=== PATIENT | female | born 1945 | race Caucasian/White ===

== ENCOUNTER → 2016-12-23 | Outpatient (CLI) | payer MEDICARE, OTHER ==
[~2016-12-23] MED LIST: ALBU4TAB PO; AMAN100T PO; AMIO200T42 PO; ARMO250T4 PO; ASPI-621 PO; BENZ100C4 PO; CALC-141 PO; CALC600T11 PO; CARV3.122 PO; CEFD300C37 PO; CHOL100015 PO; CHOL500050 PO; ENOX40SY4 SQ; FAMO20TA7 PO; FENT1PAT76 TP; FLUT1AER PO; FURO40TA6 PO; GABA300C10 PO; GUAI200T3 PO; GUAI5SYR PO; IPRA4AER PO; LEVO330T PO; LEVO750T26 PO; LEVO75TA PO; LOSA25TA2 PO; MAGN71.5 PO; METO25TA35 PO; MONT10TA9 PO; OXYC-229 PO; PANT40TA3 PO; POTA10TA PO; POTA10TA5 PO; PRAS25CA6 PO; PRAS25TA PO; PRED1TAB PO; PRED20TA PO; PRED5TAB PO; RIVA10TA PO; RIVA20TA PO; SULF1TAB24 PO; VALA1000 PO; [UNRECOGNIZED DRUG - OTHER] IV; [UNRECOGNIZED DRUG - OTHER] PO; [UNRECOGNIZED DRUG - OTHER] PO
== END | disposition home or self-care (01) ==
LOC: CFH 09:57
PROVIDERS: ATTEND Internal Medicine Cardiovascular Disease
DX: I07.1 Rheumatic tricuspid insufficiency (principal); I34.0 Nonrheumatic mitral (valve) insufficiency; I37.1 Nonrheumatic pulmonary valve insufficiency; J44.9 Chronic obstructive pulmonary disease, unspecified; I11.0 Hypertensive heart disease with heart failure; Z87.891 Personal history of nicotine dependence; Z95.0 Presence of cardiac pacemaker
CPT/HCPCS: 93306

== ENCOUNTER → 2017-03-13 | Outpatient (CLI) | payer MEDICARE, OTHER | END | disposition home or self-care (01) | LOC: CVU 07:30 | PROVIDERS: ATTEND Internal Medicine Cardiovascular Disease | DX: I74.5 Embolism and thrombosis of iliac artery (principal); I73.9 Peripheral vascular disease, unspecified; I10 Essential (primary) hypertension; I25.10 Atherosclerotic heart disease of native coronary artery without angina pectoris; E03.9 Hypothyroidism, unspecified; R53.83 Other fatigue | CPT/HCPCS: 93922; 93925; 93978 ==

== ENCOUNTER 2017-05-14 11:12 | Inpatient (IN) | payer MEDICARE, OTHER ==
[~2017-05-14] VITALS: Ht 152.4 cm; Wt 68.2 kg
[~2017-05-14 11:12] MED LIST changes: +ARMO250T2 PO; -ARMO250T4 PO; +BENZ100C17 PO; -BENZ100C4 PO; -CALC600T11 PO; +CALC600T23 PO; -OXYC-229 PO; +OXYC-307 PO
[2017-05-14] MEDS ORDERED: ONDANSETRON 2MG/ML, 2ML ONE (11:50)
[2017-05-14] MEDS ORDERED: SODIUM CHLORIDE 0.9% 1,000ML IVBOLUS ONE (13:00)
[2017-05-14] MEDS ORDERED: SODIUM CHLORIDE FLUSH 10ML SYR IVF ONE (13:00)
[2017-05-14] MEDS ORDERED: ONDANSETRON 2MG/ML, 2ML IVPush ONE (13:00)
[2017-05-14 13:09] LABS: HEMATOCRIT 43.4 % (34.6-47.8); HEMOGLOBIN 14.2 g/dL (11.7-16.4); WHITE BLOOD COUNT 8.4 x10^3/uL (3.4-10)
[2017-05-14 13:19] LABS: BLOOD UREA NITROGEN 27 mg/dL (7-18)
[2017-05-14 13:25] LABS: ASPARTATE AMINO TRANSFERASE 15 U/L (15-37); IS PT STATUS REG ER OR PRE ER? YES
[2017-05-14] MEDS: SODIUM CHLORIDE 0.9% 1,000 ML IV SCH (14:57)
[2017-05-14] MEDS ORDERED: hydrALAzine 20 MG/ML, 1ML IVPush PRN (15:00)
[2017-05-14] MEDS ORDERED: TEMPLATE NON-FORMULARY MED. (Valacyclovir Hcl** (Valacyclovir**) 1,000 MG) PO SCH (15:00)
[2017-05-14] MEDS ORDERED: BISACODYL 10 MG SUPP PR PRN (15:00)
[2017-05-14] MEDS ORDERED: ACETAMINOPHEN 325 MG TABLET PO PRN (15:00)
[2017-05-14] MEDS ORDERED: ONDANSETRON ODT 4 MG PO PRN (15:00)
[2017-05-14] MEDS: HEPARIN 5,000 UNITS/ML, 1ML SQ SCH ×2 (15:00→22:08)
[2017-05-14] MEDS ORDERED: LABETALOL 5MG/ML, 20ML IVPush PRN (15:00)
[2017-05-14] MEDS ORDERED: DOCUSATE 100 MG CAPSULE PO PRN (15:00)
[2017-05-14] MEDS ORDERED: BENZONATATE 100 MG CAPSULE PO PRN ×2 (15:00)
[2017-05-14] MEDS ORDERED: ONDANSETRON 2MG/ML, 2ML IVPush PRN (15:00)
[2017-05-14 15:01] LABS: PTH INTACT INTERPRETATION ** Comment **
[2017-05-14 15:27] LABS: PARATHYROID HORMONE INTACT 155.2 pg/mL (14-72)
[2017-05-14] MEDS ORDERED: ALBUTEROL SULFATE 2.5 MG/3 ML NPPB PRN (17:00)
[2017-05-14 18:04] VITALS: BP 105/61
[2017-05-14 19:17] VITALS: BP 120/63
[2017-05-14] MEDS: MULTIVITAMINS/MINERALS TABLET PO SCH (21:00)
[2017-05-14 21:35] VITALS: BP 131/67
[2017-05-14] MEDS: CARVEDILOL 3.125 MG TABLET PO SCH (21:39)
[2017-05-15 01:25] VITALS: BP 126/73
[2017-05-15 05:49] LABS: HEMATOCRIT 37.5 % (34.6-47.8); HEMOGLOBIN 12.2 g/dL (11.7-16.4); WHITE BLOOD COUNT 7.4 x10^3/uL (3.4-10)
[2017-05-15] MEDS: HEPARIN 5,000 UNITS/ML, 1ML SQ SCH (06:42)
[2017-05-15 06:44] LABS: BLOOD UREA NITROGEN 27 mg/dL (7-18)
[2017-05-15 07:10] VITALS: BP 123/64
[2017-05-15] MEDS: MONTELUKAST 10 MG TABLET PO SCH (09:00)
[2017-05-15] MEDS: LEVOCARNITINE 330 MG TABLET PO SCH (09:00)
[2017-05-15] MEDS ORDERED: TEMPLATE NON-FORMULARY MED. (Prasterone (Dhea) (Dhea 25) 25 MG) HOMEMEDPO SCH (09:00)
[2017-05-15] MEDS: LEVOTHYROXINE 75 MCG TABLET PO SCH (10:02)
[2017-05-15] MEDS: CARVEDILOL 3.125 MG TABLET PO SCH ×2 (10:02→20:43)
[2017-05-15] MEDS: PANTOPROZOLE 40MG TABLET PO SCH (10:02)
[2017-05-15] MEDS: CHOLECALCIFEROL 1,000 UNIT TABLET PO SCH (10:02)
[2017-05-15] MEDS: TEMPLATE NON-FORMULARY MED. (Valacyclovir Hcl** (Valacyclovir**) 1,000 MG) PO SCH (10:35)
[2017-05-15] MEDS: APIXABAN 2.5 MG TABLET PO SCH ×2 (10:52→20:43)
[2017-05-15] MEDS: FLUTICASONE/VILANTEROL 200-25MCG/INH INH SCH (10:52)
[2017-05-15] MEDS: AMANTADINE 100 MG CAPSULE PO SCH ×2 (10:52→20:43)
[2017-05-15] MEDS: SODIUM CHLORIDE 0.9% 1,000 ML IV SCH (14:57)
[2017-05-15 14:58] VITALS: BP 134/68
[2017-05-15] MEDS: FENTANYL REMOVE PATCH NOTE XX SCH (17:00)
[2017-05-15] MEDS: FENTANYL 25 MCG PATCH TD SCH (17:17)
[2017-05-15 20:00] VITALS: BP 138/78
[2017-05-15 20:40] VITALS: BP 138/69
[2017-05-15] MEDS: MULTIVITAMINS/MINERALS TABLET PO SCH (21:00)
[2017-05-16 02:04] VITALS: BP 137/75
[2017-05-16 05:30] LABS: HEMATOCRIT 35.2 % (34.6-47.8); HEMOGLOBIN 11.4 g/dL (11.7-16.4); WHITE BLOOD COUNT 7.9 x10^3/uL (3.4-10)
[2017-05-16 05:55] LABS: BLOOD UREA NITROGEN 25 mg/dL (7-18)
[2017-05-16 06:02] LABS: TOTAL IRON BINDING CAPACITY 261 mcg/dL (250-450)
[2017-05-16 06:03] LABS: ASPARTATE AMINO TRANSFERASE 11 U/L (15-37); FERRITIN 107.6 ng/mL (8-252)
[2017-05-16 07:20] VITALS: BP 146/79
[2017-05-16] MEDS: FLUTICASONE/VILANTEROL 200-25MCG/INH INH SCH (08:43)
[2017-05-16] MEDS: TEMPLATE NON-FORMULARY MED. (Valacyclovir Hcl** (Valacyclovir**) 1,000 MG) PO SCH (08:43)
[2017-05-16] MEDS: LEVOCARNITINE 330 MG TABLET PO SCH (08:45)
[2017-05-16] MEDS: MONTELUKAST 10 MG TABLET PO SCH (08:46)
[2017-05-16] MEDS: PANTOPROZOLE 40MG TABLET PO SCH (08:46)
[2017-05-16] MEDS: AMANTADINE 100 MG CAPSULE PO SCH ×2 (08:46→21:41)
[2017-05-16] MEDS: APIXABAN 2.5 MG TABLET PO SCH ×2 (08:46→21:42)
[2017-05-16] MEDS: CARVEDILOL 3.125 MG TABLET PO SCH ×2 (08:46→22:30)
[2017-05-16] MEDS: CHOLECALCIFEROL 1,000 UNIT TABLET PO SCH (08:47)
[2017-05-16] MEDS: LEVOTHYROXINE 75 MCG TABLET PO SCH (08:47)
[2017-05-16] MEDS: IRON SUCROSE COMPLEX 100MG/5ML IV SCH (10:47)
[2017-05-16] MEDS: CALCIUM CARBONATE 500 MG TABLET PO SCH ×2 (12:43→21:41)
[2017-05-16 13:50] VITALS: BP 121/65
[2017-05-16] MEDS: SODIUM CHLORIDE 0.9% 1,000 ML IV SCH (14:33)
[2017-05-16 20:00] VITALS: BP 135/79
[2017-05-16] MEDS: MULTIVITAMINS/MINERALS TABLET PO SCH (21:00)
[2017-05-16 22:32] VITALS: BP 157/50
[2017-05-17 02:00] VITALS: BP 151/75
[2017-05-17 05:12] LABS: HEMATOCRIT 36.7 % (34.6-47.8); WHITE BLOOD COUNT 8.3 x10^3/uL (3.4-10)
[2017-05-17 05:24] LABS: BLOOD UREA NITROGEN 26 mg/dL (7-18)
[2017-05-17 05:30] LABS: ASPARTATE AMINO TRANSFERASE 13 U/L (15-37)
[2017-05-17 07:55] VITALS: BP 136/68
[2017-05-17] MEDS: TEMPLATE NON-FORMULARY MED. (Valacyclovir Hcl** (Valacyclovir**) 1,000 MG) PO SCH (09:00)
[2017-05-17] MEDS: LEVOCARNITINE 330 MG TABLET PO SCH ×2 (09:00→09:01)
[2017-05-17] MEDS: MONTELUKAST 10 MG TABLET PO SCH ×2 (09:00→09:01)
[2017-05-17] MEDS: APIXABAN 2.5 MG TABLET PO SCH (09:01)
[2017-05-17] MEDS: AMANTADINE 100 MG CAPSULE PO SCH ×2 (09:01→21:07)
[2017-05-17] MEDS: PANTOPROZOLE 40MG TABLET PO SCH (09:01)
[2017-05-17] MEDS: LEVOTHYROXINE 75 MCG TABLET PO SCH (09:02)
[2017-05-17] MEDS: CALCIUM CARBONATE 500 MG TABLET PO SCH ×2 (09:02→21:06)
[2017-05-17] MEDS: CARVEDILOL 3.125 MG TABLET PO SCH ×2 (09:02→21:07)
[2017-05-17] MEDS: FLUTICASONE/VILANTEROL 200-25MCG/INH INH SCH (09:02)
[2017-05-17] MEDS: IRON SUCROSE COMPLEX 100MG/5ML IV SCH (09:03)
[2017-05-17] MEDS: SODIUM CHLORIDE 0.9% 1,000 ML IV SCH ×2 (12:11→17:04)
[2017-05-17 14:12] VITALS: BP 123/73
[2017-05-17 20:00] VITALS: BP 130/68
[2017-05-17] MEDS: APIXABAN 5 MG TABLET PO SCH (21:06)
[2017-05-17] MEDS: MULTIVITAMINS/MINERALS TABLET PO SCH (21:07)
[2017-05-18 02:00] VITALS: BP 149/70
[2017-05-18] MEDS: SODIUM CHLORIDE 0.9% 1,000 ML IV SCH ×2 (05:05→20:41)
[2017-05-18 05:38] LABS: HEMATOCRIT 37.4 % (34.6-47.8); HEMOGLOBIN 12.3 g/dL (11.7-16.4); WHITE BLOOD COUNT 9.1 x10^3/uL (3.4-10)
[2017-05-18 05:59] LABS: ASPARTATE AMINO TRANSFERASE 10 U/L (15-37); BLOOD UREA NITROGEN 28 mg/dL (7-18)
[2017-05-18 07:59] VITALS: BP 151/80
[2017-05-18] MEDS: LEVOCARNITINE 330 MG TABLET PO SCH (08:00)
[2017-05-18] MEDS: MONTELUKAST 10 MG TABLET PO SCH (08:01)
[2017-05-18] MEDS: IRON SUCROSE COMPLEX 100MG/5ML IV SCH (08:08)
[2017-05-18] MEDS: FLUTICASONE/VILANTEROL 200-25MCG/INH INH SCH (08:08)
[2017-05-18] MEDS: TEMPLATE NON-FORMULARY MED. (Valacyclovir Hcl** (Valacyclovir**) 1,000 MG) PO SCH (08:08)
[2017-05-18] MEDS: PANTOPROZOLE 40MG TABLET PO SCH (08:09)
[2017-05-18] MEDS: CARVEDILOL 3.125 MG TABLET PO SCH ×2 (08:09→20:41)
[2017-05-18] MEDS: CALCIUM CARBONATE 500 MG TABLET PO SCH ×2 (08:09→20:38)
[2017-05-18] MEDS: APIXABAN 5 MG TABLET PO SCH ×2 (08:09→20:40)
[2017-05-18] MEDS: AMANTADINE 100 MG CAPSULE PO SCH ×2 (08:10→20:39)
[2017-05-18] MEDS: LEVOTHYROXINE 75 MCG TABLET PO SCH (08:10)
[2017-05-18 12:12] LABS: PATH.CAST-FLAG NOT PRESENT; SPERM-FLAG NOT PRESENT; SRC-FLAG NOT PRESENT; XTAL-FLAG NOT PRESENT; YLC-FLAG NOT PRESENT
[2017-05-18 12:14] LABS: POTASSIUM,URINE RANDOM 11 mmol/L
[2017-05-18 12:18] VITALS: BP 134/77
[2017-05-18] MEDS: FENTANYL REMOVE PATCH NOTE XX SCH (17:00)
[2017-05-18] MEDS: FENTANYL 25 MCG PATCH TD SCH (18:14)
[2017-05-18 20:09] VITALS: BP 159/83
[2017-05-18] MEDS: MULTIVITAMINS/MINERALS TABLET PO SCH (20:41)
[2017-05-19 01:00] VITALS: BP 174/74
[2017-05-19 02:32] VITALS: BP 165/89
[2017-05-19 05:28] LABS: HEMATOCRIT 38.6 % (34.6-47.8); HEMOGLOBIN 12.6 g/dL (11.7-16.4); WHITE BLOOD COUNT 9.6 x10^3/uL (3.4-10)
[2017-05-19 05:34] LABS: ASPARTATE AMINO TRANSFERASE 10 U/L (15-37); BLOOD UREA NITROGEN 27 mg/dL (7-18)
[2017-05-19 07:07] VITALS: BP 163/77
[2017-05-19] MEDS: SODIUM CHLORIDE 0.9% 1,000 ML IV SCH (08:40)
[2017-05-19] MEDS: TEMPLATE NON-FORMULARY MED. (Valacyclovir Hcl** (Valacyclovir**) 1,000 MG) PO SCH (08:57)
[2017-05-19] MEDS: FLUTICASONE/VILANTEROL 200-25MCG/INH INH SCH (08:58)
[2017-05-19] MEDS: AMANTADINE 100 MG CAPSULE PO SCH (08:59)
[2017-05-19] MEDS: MONTELUKAST 10 MG TABLET PO SCH (09:00)
[2017-05-19] MEDS: CALCIUM CARBONATE 500 MG TABLET PO SCH (09:00)
[2017-05-19] MEDS: APIXABAN 5 MG TABLET PO SCH (09:00)
[2017-05-19] MEDS: PANTOPROZOLE 40MG TABLET PO SCH (09:01)
[2017-05-19] MEDS: LEVOTHYROXINE 75 MCG TABLET PO SCH (09:01)
[2017-05-19] MEDS: CARVEDILOL 3.125 MG TABLET PO SCH (09:01)
[2017-05-19] MEDS ORDERED: APIX5TAB PO (10:51)
[2017-05-24 08:07] LABS: CARNITINE FREE 27 umol/L (20-55); CARNITINE TOTAL 31 umol/L (27-73); ESTERIFIED/FREE CARNIT RATIO 0.1 Ratio (0.0-0.9)
== END 2017-05-19 13:14 | disposition home or self-care (01) | DRG 682 ==
LOC: ED 12:30 → EDIP 14:01 → 4EST 17:18
PROVIDERS: ADMIT Internal Medicine; ATTEND Internal Medicine
DX: N17.9 Acute kidney failure, unspecified (principal); E43 Unspecified severe protein-calorie malnutrition; I48.91 Unspecified atrial fibrillation; Z99.81 Dependence on supplemental oxygen; I50.9 Heart failure, unspecified; D63.1 Anemia in chronic kidney disease; E83.51 Hypocalcemia; D50.9 Iron deficiency anemia, unspecified; J44.9 Chronic obstructive pulmonary disease, unspecified; R55 Syncope and collapse; E03.9 Hypothyroidism, unspecified; E86.0 Dehydration; M60.9 Myositis, unspecified; R29.6 Repeated falls; N18.6 End stage renal disease; Z66 Do not resuscitate; Z86.711 Personal history of pulmonary embolism; Z86.718 Personal history of other venous thrombosis and embolism; Z87.440 Personal history of urinary (tract) infections; Z87.891 Personal history of nicotine dependence; Z95.0 Presence of cardiac pacemaker; Z68.29 Body mass index [BMI] 29.0-29.9, adult; Z88.1 Allergy status to other antibiotic agents; Z88.5 Allergy status to narcotic agent; Z88.0 Allergy status to penicillin; Z88.8 Allergy status to other drugs, medicaments and biological substances
CPT/HCPCS: 36415; 71010; 76770; 80048; 80053; 81001; 82306; 82310; 82330; 82379; 82436; 82550; 82570; 82652; 82728; 83540; 83550; 83605; 83735; 83970; 84100; 84133; 84156; 84300; 84439; 84443; 84484; 84550; 85025; 87040; 87086; 93005; 93306; 96361; 96374; J1756; J2405; J7512; J7030

== ENCOUNTER 2017-05-22 02:03 | Emergency (ER) | payer MEDICARE, OTHER ==
[~2017-05-22] VITALS: Ht 160 cm; Wt 65.0 kg
[~2017-05-22 02:03] MED LIST changes: +APIX5TAB PO; +BENZ-17 PO; -BENZ100C17 PO
[2017-05-22 02:05] VITALS: BP 168/92
[2017-05-22] MEDS ORDERED: LIDOCAINE 1%, 20ML ONE (03:13)
== END 2017-05-22 04:24 | disposition home or self-care (01) ==
LOC: ED 02:39
DX: S09.90XA Unspecified injury of head, initial encounter (principal); S61.511A Laceration without foreign body of right wrist, initial encounter; G89.11 Acute pain due to trauma; R51 Headache; S52.611A Displaced fracture of right ulna styloid process, initial encounter for closed fracture; J44.9 Chronic obstructive pulmonary disease, unspecified; E03.9 Hypothyroidism, unspecified; Z86.718 Personal history of other venous thrombosis and embolism; W19.XXXA Unspecified fall, initial encounter; Y93.89 Activity, other specified; Y93.01 Activity, walking, marching and hiking; Y92.091 Bathroom in other non-institutional residence as the place of occurrence of the external cause
CPT/HCPCS: 12004; 70450; 99284

== ENCOUNTER → 2017-05-25 | Outpatient (CLI) | payer MEDICARE, OTHER ==
[~2017-05-25] MED LIST changes: -BENZ-17 PO; +BENZ100C17 PO
[2017-05-25 12:46] LABS: HEMATOCRIT 38.6 % (34.6-47.8); HEMOGLOBIN 12.8 g/dL (11.7-16.4); WHITE BLOOD COUNT 12.5 x10^3/uL (3.4-10)
[2017-05-25 12:54] LABS: BLOOD UREA NITROGEN 16 mg/dL (7-18)
[2017-05-25 12:59] LABS: ASPARTATE AMINO TRANSFERASE 14 U/L (15-37)
== END | disposition home or self-care (01) ==
LOC: CFH 11:43
PROVIDERS: ATTEND Internal Medicine Nephrology
DX: N18.9 Chronic kidney disease, unspecified (principal)
CPT/HCPCS: 36415; 80053; 81001; 82570; 83735; 84100; 84156; 85025

== ENCOUNTER 2017-09-01 16:50 | Inpatient (IN) | payer MEDICARE, OTHER ==
[~2017-09-01] VITALS: Ht 154.9 cm; Wt 63.9 kg
[~2017-09-01 16:50] MED LIST changes: +BENZ-17 PO; -BENZ100C17 PO
[2017-09-01] MEDS ORDERED: SODIUM CHLORIDE FLUSH 10ML SYR IVF ONE (17:00)
[2017-09-01 17:23] LABS: BASOPHILS # (AUTO) 0.02 x10^3/uL (0-0.1); BASOPHILS % (AUTO) 0 % (0-1); EOSINOPHILS # (AUTO) 0.01 x10^3/uL (0-0.4); EOSINOPHILS % (AUTO) 0 % (1-7); LYMPHOCYTES # (AUTO) 0.63 x10^3/uL (1-3.4); LYMPHOCYTES % (AUTO) 4 % (22-44); MD NO; MEAN CORPUSCULAR HEMOGLOBIN 33.3 pg (27.0-34.8); MEAN CORPUSCULAR HGB CONC 32.5 g/dL (32.4-35.8); MEAN CORPUSCULAR VOLUME 102.4 fL (80-100); MEAN PLATELET VOLUME 7.9 fL (7.4-10.4); MONOCYTES # (AUTO) 1.15 x10^3/uL (0.2-0.8); MONOCYTES % (AUTO) 7 % (2-9); NEUTROPHILS # (AUTO) 14.05 x10^3/uL (1.8-6.8); NEUTROPHILS % (AUTO) 89 % (42-75); PLATELET COUNT 252 x10^3/uL (130-400); RED BLOOD COUNT 3.64 x10^6/uL (3.82-5.3); RED CELL DISTRIBUTION WIDTH 13.8 % (9.6-15.2)
[2017-09-01 17:36] LABS: ALANINE AMINOTRANSFERASE 33 U/L (12-78); ALBUMIN 3.5 g/dL (3.4-5.0); ANION GAP 6 mmol/L (5-15); CALCIUM 7.9 mg/dL (8.5-10.1); CHLORIDE 108 mmol/L (98-107); CREATININE 0.96 mg/dL (0.55-1.02)
[2017-09-01 17:37] LABS: INTERNATIONAL NORMALIZED RATIO 1.23 (0.93-1.1); PROTHROMBIN TIME 12.7 Seconds (9.6-11.5)
[2017-09-01 17:40] LABS: ALKALINE PHOSPHATASE 92 U/L (45-117); BILIRUBIN,TOTAL 0.3 mg/dL (0.2-1.0); TOTAL PROTEIN 6.7 g/dL (6.4-8.2); TROPONIN I 0.068 ng/mL (0.000-0.045)
[2017-09-01] MEDS ORDERED: LOSA100T6 PO (17:40)
[2017-09-01] MEDS ORDERED: PRED1TAB PO (17:40)
[2017-09-01] MEDS ORDERED: FUROSEMIDE 40 MG/4 ML IV ONE (18:30)
[2017-09-01] MEDS ORDERED: DILTIAZEM 5 MG/ML, 5ML IVPush ONE (18:30)
[2017-09-01] MEDS ORDERED: ONDANSETRON ODT 4 MG PO PRN (19:00)
[2017-09-01] MEDS ORDERED: TEMPLATE NON-FORMULARY MED. (Valacyclovir Hcl** (Valacyclovir**) 1,000 MG) PO SCH (19:00)
[2017-09-01] MEDS ORDERED: OXYcodone/APAP 10/325MG TABLET PO PRN (19:00)
[2017-09-01] MEDS ORDERED: LABETALOL 5MG/ML, 20ML IVPush PRN (19:00)
[2017-09-01] MEDS ORDERED: DOCUSATE 100 MG CAPSULE PO PRN (19:00)
[2017-09-01] MEDS ORDERED: TEMAZEPAM 15 MG CAPSULE PO PRN (19:00)
[2017-09-01 19:39] LABS: FREE T4 (FREE THYROXINE) 1.46 ng/dL (0.76-1.46); THYROID STIMULATING HORMONE 0.502 mIU/L (0.358-3.740)
[2017-09-01 20:33] VITALS: BP 141/82
[2017-09-01] MEDS ORDERED: RIVAROXABAN 15 MG TABLET PO SCH (21:30)
[2017-09-01 22:22] VITALS: BP 141/82
[2017-09-01] MEDS: CARVEDILOL 3.125 MG TABLET PO SCH (23:12)
[2017-09-01] MEDS: AMANTADINE 100 MG CAPSULE PO SCH (23:13)
[2017-09-01 23:19] LABS: TROPONIN I 0.071 ng/mL (0.000-0.045)
[2017-09-02] MEDS ORDERED: RIVAROXABAN 10 MG TABLET PO ONE (00:30)
[2017-09-02 02:05] VITALS: BP 133/77
[2017-09-02 05:32] LABS: BASOPHILS # (AUTO) 0.03 x10^3/uL (0-0.1); BASOPHILS % (AUTO) 0 % (0-1); EOSINOPHILS # (AUTO) 0.02 x10^3/uL (0-0.4); EOSINOPHILS % (AUTO) 0 % (1-7); LYMPHOCYTES # (AUTO) 1.24 x10^3/uL (1-3.4); LYMPHOCYTES % (AUTO) 9 % (22-44); MD NO; MEAN CORPUSCULAR HEMOGLOBIN 33.1 pg (27.0-34.8); MEAN CORPUSCULAR HGB CONC 32.8 g/dL (32.4-35.8); MEAN PLATELET VOLUME 8.3 fL (7.4-10.4); MONOCYTES # (AUTO) 1.36 x10^3/uL (0.2-0.8); MONOCYTES % (AUTO) 10 % (2-9); NEUTROPHILS # (AUTO) 11.28 x10^3/uL (1.8-6.8); NEUTROPHILS % (AUTO) 81 % (42-75); PLATELET COUNT 219 x10^3/uL (130-400); RED BLOOD COUNT 3.73 x10^6/uL (3.82-5.3); RED CELL DISTRIBUTION WIDTH 13.7 % (9.6-15.2)
[2017-09-02 05:47] LABS: ANION GAP 6 mmol/L (5-15); CHLORIDE 102 mmol/L (98-107)
[2017-09-02 05:52] LABS: CALCIUM 8.3 mg/dL (8.5-10.1); CREATININE 1.02 mg/dL (0.55-1.02)
[2017-09-02 07:25] VITALS: BP 143/83
[2017-09-02] MEDS ORDERED: PANTOPROZOLE 40MG TABLET ONE (07:54)
[2017-09-02] MEDS ORDERED: VALACYCLOVIR 500MG TABLET ONE (07:55)
[2017-09-02] MEDS ORDERED: LOSARTAN 50MG TABLET ONE (07:55)
[2017-09-02] MEDS ORDERED: LEVOTHYROXINE 75 MCG TABLET ONE (07:56)
[2017-09-02] MEDS: LOSARTAN 50MG TABLET PO SCH (08:00)
[2017-09-02] MEDS: CARVEDILOL 3.125 MG TABLET PO SCH ×2 (08:01→20:59)
[2017-09-02] MEDS: PANTOPROZOLE 40MG TABLET PO SCH (08:01)
[2017-09-02] MEDS: AMANTADINE 100 MG CAPSULE PO SCH ×2 (08:02→20:59)
[2017-09-02] MEDS: LEVOTHYROXINE 75 MCG TABLET PO SCH (08:04)
[2017-09-02] MEDS: VALACYCLOVIR 500MG TABLET PO SCH (08:05)
[2017-09-02 08:20] LABS: TROPONIN I 0.092 ng/mL (0.000-0.045)
[2017-09-02] MEDS ORDERED: LEVOTHYROXINE 75 MCG TABLET PO SCH (09:00)
[2017-09-02] MEDS ORDERED: TEMPLATE NON-FORMULARY MED. (Valacyclovir Hcl** (Valacyclovir**) 1,000 MG) PO SCH (09:00)
[2017-09-02] MEDS ORDERED: MAGNESIUM SULFATE PMX 2GM/50ML 50 ML IV ONE (11:00)
[2017-09-02] MEDS ORDERED: POTASSIUM CHLORIDE 20 MEQ TAB.ER.PRT PO ONE (11:00)
[2017-09-02] MEDS: FUROSEMIDE 40 MG/4 ML IV SCH ×2 (12:03→18:11)
[2017-09-02 12:15] VITALS: BP 135/75
[2017-09-02] MEDS: RIVAROXABAN 20 MG TABLET PO SCH (18:11)
[2017-09-02 19:16] VITALS: BP 121/78
[2017-09-03 01:00] VITALS: BP 122/81
[2017-09-03] MEDS: LEVOTHYROXINE 75 MCG TABLET PO SCH (06:11)
[2017-09-03 07:04] VITALS: BP 117/84
[2017-09-03] MEDS: FUROSEMIDE 40 MG/4 ML IV SCH ×2 (08:00→17:33)
[2017-09-03] MEDS ORDERED: DIGOXIN 0.25 MG/ML, 2ML IVPush ONE ×4 (08:30→20:30)
[2017-09-03] MEDS: AMANTADINE 100 MG CAPSULE PO SCH ×2 (09:00→21:00)
[2017-09-03] MEDS ORDERED: CARVEDILOL 3.125 MG TABLET ONE (09:51)
[2017-09-03] MEDS: VALACYCLOVIR 500MG TABLET PO SCH (09:55)
[2017-09-03] MEDS: PANTOPROZOLE 40MG TABLET PO SCH (09:56)
[2017-09-03] MEDS: LOSARTAN 50MG TABLET PO SCH (09:56)
[2017-09-03] MEDS: DIGOXIN 0.25 MG TABLET PO SCH (09:56)
[2017-09-03] MEDS: METOPROLOL TARTRATE 25 MG TABLET PO SCH ×2 (10:09→18:25)
[2017-09-03 12:41] VITALS: BP 110/69
[2017-09-03] MEDS: RIVAROXABAN 20 MG TABLET PO SCH (18:25)
[2017-09-03 18:49] VITALS: BP 93/52
[2017-09-03] MEDS ORDERED: DIGOXIN 0.25 MG/ML, 2ML IVPush PRN (19:30)
[2017-09-04 01:35] VITALS: BP 116/69
[2017-09-04] MEDS: METOPROLOL TARTRATE 25 MG TABLET PO SCH (05:43)
[2017-09-04] MEDS: LEVOTHYROXINE 75 MCG TABLET PO SCH (05:44)
[2017-09-04 07:53] VITALS: BP 114/68
[2017-09-04] MEDS: FUROSEMIDE 40 MG/4 ML IV SCH ×3 (08:12→17:00)
[2017-09-04] MEDS: VALACYCLOVIR 500MG TABLET PO SCH (08:13)
[2017-09-04] MEDS: PANTOPROZOLE 40MG TABLET PO SCH (08:13)
[2017-09-04] MEDS: DIGOXIN 0.25 MG TABLET PO SCH (08:13)
[2017-09-04] MEDS: AMANTADINE 100 MG CAPSULE PO SCH (08:13)
[2017-09-04] MEDS: LOSARTAN 50MG TABLET PO SCH (08:14)
[2017-09-04] MEDS ORDERED: REGADENOSON 0.4 MG/5 ML SYRINGE ONE (08:30)
[2017-09-04] MEDS ORDERED: CALCIUM/VITAMIN D3 250-125 TABLET ONE (11:20)
[2017-09-04 14:11] VITALS: BP 122/75
[2017-09-04] MEDS ORDERED: DIGO250T PO (15:43)
[2017-09-04] MEDS ORDERED: POTA20TA14 PO (15:43)
[2017-09-04] MEDS ORDERED: FURO40TA6 PO (15:43)
[2017-09-04] MEDS ORDERED: METO25TA35 PO (16:41)
[2017-09-04] MEDS ORDERED: RIVA20TA PO (16:41)
== END 2017-09-04 17:34 | disposition home health service (06) | DRG 291 ==
LOC: ED 18:24 → EDIP 18:25 → ED 18:43 → 5SO 20:19
PROVIDERS: ADMIT Internal Medicine; ATTEND Hospitalist
DX: I11.0 Hypertensive heart disease with heart failure (principal); J96.21 Acute and chronic respiratory failure with hypoxia; I82.411 Acute embolism and thrombosis of right femoral vein; D68.69 Other thrombophilia; I50.43 Acute on chronic combined systolic (congestive) and diastolic (congestive) heart failure; I42.9 Cardiomyopathy, unspecified; Z99.81 Dependence on supplemental oxygen; G89.4 Chronic pain syndrome; I16.0 Hypertensive urgency; E03.9 Hypothyroidism, unspecified; I48.0 Paroxysmal atrial fibrillation; I77.1 Stricture of artery; J44.9 Chronic obstructive pulmonary disease, unspecified; M60.9 Myositis, unspecified; Z79.01 Long term (current) use of anticoagulants; Z86.711 Personal history of pulmonary embolism; Z86.718 Personal history of other venous thrombosis and embolism; Z87.891 Personal history of nicotine dependence; Z95.0 Presence of cardiac pacemaker; Z98.1 Arthrodesis status
CPT/HCPCS: 36415; 71045; 78452; 80048; 80053; 83880; 84439; 84443; 84484; 85025; 85379; 85610; 85730; 93005; 93017; 93306; 93970; J1940; J2785; J7512; A9502; C9898; J1160; J3475

== ENCOUNTER 2017-11-08 18:38 | Emergency (ER) | payer MEDICARE, OTHER ==
[~2017-11-08] VITALS: Ht 154.9 cm; Wt 70.0 kg
[~2017-11-08 18:38] MED LIST changes: +DIGO250T PO; +LOSA100T6 PO; +POTA20TA14 PO
[2017-11-08 20:10] VITALS: BP 141/63
== END 2017-11-08 20:15 | disposition home or self-care (01) ==
LOC: ED 19:23
DX: J01.00 Acute maxillary sinusitis, unspecified (principal); J01.10 Acute frontal sinusitis, unspecified; E03.9 Hypothyroidism, unspecified; I48.91 Unspecified atrial fibrillation; I50.9 Heart failure, unspecified; J44.9 Chronic obstructive pulmonary disease, unspecified; Z86.711 Personal history of pulmonary embolism; Z86.718 Personal history of other venous thrombosis and embolism; Z95.0 Presence of cardiac pacemaker
CPT/HCPCS: 71046; 99284

== ENCOUNTER → 2018-01-04 | Outpatient (CLI) | payer MEDICARE, OTHER | END | disposition home or self-care (01) | LOC: CFH 13:51 | PROVIDERS: ATTEND Nurse Practitioner | DX: M85.88 Other specified disorders of bone density and structure, other site (principal); M81.0 Age-related osteoporosis without current pathological fracture; E83.51 Hypocalcemia | CPT/HCPCS: 77080 ==

== ENCOUNTER → 2018-02-27 | Outpatient (CLI) | payer MEDICARE, OTHER | END | disposition home or self-care (01) | LOC: WOUND 09:05 | PROVIDERS: ATTEND Nurse Practitioner Family | DX: L03.115 Cellulitis of right lower limb (principal); L03.116 Cellulitis of left lower limb; I11.0 Hypertensive heart disease with heart failure; I50.32 Chronic diastolic (congestive) heart failure; J44.9 Chronic obstructive pulmonary disease, unspecified; I48.2 Chronic atrial fibrillation; K21.9 Gastro-esophageal reflux disease without esophagitis; E03.9 Hypothyroidism, unspecified; Z87.891 Personal history of nicotine dependence; Z86.718 Personal history of other venous thrombosis and embolism; Z86.711 Personal history of pulmonary embolism | CPT/HCPCS: G0463; WOU0463 ==

== ENCOUNTER → 2018-03-06 | Outpatient (CLI) | payer MEDICARE, OTHER | END | disposition home or self-care (01) | LOC: WOUND 09:20 | PROVIDERS: ATTEND Nurse Practitioner Family | DX: L03.115 Cellulitis of right lower limb (principal); L03.116 Cellulitis of left lower limb; I11.0 Hypertensive heart disease with heart failure; I50.32 Chronic diastolic (congestive) heart failure; J44.9 Chronic obstructive pulmonary disease, unspecified; I48.2 Chronic atrial fibrillation; K21.9 Gastro-esophageal reflux disease without esophagitis; E03.9 Hypothyroidism, unspecified; Z87.891 Personal history of nicotine dependence; Z86.718 Personal history of other venous thrombosis and embolism; Z86.711 Personal history of pulmonary embolism | CPT/HCPCS: G0463; WOU0463 ==

== ENCOUNTER 2018-05-16 16:31 | Inpatient (IN) | payer MEDICARE, OTHER ==
[~2018-05-16] VITALS: Ht 154.9 cm; Wt 62.5 kg
[~2018-05-16 16:31] MED LIST changes: -LOSA100T6 PO; +LOSA100T7 PO
[2018-05-16 17:30] LABS: BASOPHILS # (AUTO) 0.03 x10^3/uL (0-0.1); BASOPHILS % (AUTO) 0 % (0-1); EOSINOPHILS # (AUTO) 0.03 x10^3/uL (0-0.4); EOSINOPHILS % (AUTO) 0 % (1-7); LYMPHOCYTES # (AUTO) 1.29 x10^3/uL (1-3.4); LYMPHOCYTES % (AUTO) 9 % (22-44); MD NO; MEAN CORPUSCULAR HEMOGLOBIN 34.3 pg (27.0-34.8); MEAN CORPUSCULAR HGB CONC 33.5 g/dL (32.4-35.8); MEAN CORPUSCULAR VOLUME 102.6 fL (80-100); MEAN PLATELET VOLUME 7.9 fL (7.4-10.4); MONOCYTES # (AUTO) 0.73 x10^3/uL (0.2-0.8); MONOCYTES % (AUTO) 5 % (2-9); NEUTROPHILS # (AUTO) 11.93 x10^3/uL (1.8-6.8); NEUTROPHILS % (AUTO) 85 % (42-75); PLATELET COUNT 310 x10^3/uL (130-400); RED CELL DISTRIBUTION WIDTH 13.5 % (9.6-15.2)
[2018-05-16] MEDS ORDERED: NITROGLYCERIN SINGLE TAB 0.4 MG SL ONE (17:36)
[2018-05-16] MEDS ORDERED: ASPIRIN 81 MG TABLET EC ONE (17:36)
[2018-05-16 17:41] LABS: ALBUMIN 4.1 g/dL (3.4-5.0); ANION GAP 8 mmol/L (5-15); CALCIUM 9.1 mg/dL (8.5-10.1); CHLORIDE 109 mmol/L (98-107); CREATININE 1.42 mg/dL (0.55-1.02)
[2018-05-16 17:45] LABS: TROPONIN I 0.022 ng/mL (0.000-0.045)
[2018-05-16 17:55] LABS: INTERNATIONAL NORMALIZED RATIO 1.13 (0.93-1.1); PROTHROMBIN TIME 11.6 Seconds (9.6-11.5)
[2018-05-16] MEDS ORDERED: ASPIRIN 81 MG TABLET CHEW PO ONE (18:00)
[2018-05-16] MEDS ORDERED: NITROGLYCERIN SINGLE TAB 0.4 MG SL PRN (18:00)
[2018-05-16] MEDS ORDERED: OXYcodone/APAP 5/325MG TABLET PO ONE (18:30)
[2018-05-16] MEDS ORDERED: NITROGLYCERIN 0.4 MG BOTTLE (25 TABS) SL PRN (19:30)
[2018-05-16] MEDS ORDERED: DOCUSATE 100 MG CAPSULE PO PRN (19:30)
[2018-05-16] MEDS ORDERED: ONDANSETRON ODT 4 MG PO PRN (19:30)
[2018-05-16] MEDS ORDERED: hydrALAzine 20 MG/ML, 1ML IVPush PRN (19:30)
[2018-05-16] MEDS: METOPROLOL TARTRATE 25 MG TABLET PO SCH (21:27)
[2018-05-16] MEDS: OXYcodone/APAP 10/325MG TABLET PO PRN (21:27)
[2018-05-16] MEDS: AMANTADINE 100 MG CAPSULE PO SCH (21:27)
[2018-05-16] MEDS: RIVAROXABAN 20 MG TABLET PO SCH (21:27)
[2018-05-16 21:30] VITALS: BP 150/70
[2018-05-16 21:38] LABS: TROPONIN I 0.024 ng/mL (0.000-0.045)
[2018-05-17 00:01] VITALS: BP 135/67
[2018-05-17 03:14] LABS: TROPONIN I 0.026 ng/mL (0.000-0.045)
[2018-05-17 05:32] VITALS: BP 129/72
[2018-05-17] MEDS: METOPROLOL TARTRATE 25 MG TABLET PO SCH ×2 (05:33→17:48)
[2018-05-17 07:20] VITALS: BP 131/72
[2018-05-17] MEDS: PANTOPROZOLE 40MG TABLET PO SCH (08:05)
[2018-05-17] MEDS: LOSARTAN 50MG TABLET PO SCH (08:05)
[2018-05-17] MEDS: LEVOTHYROXINE 75 MCG TABLET PO SCH (08:05)
[2018-05-17] MEDS: PRASTERONE 25 MG HOMEMEDPO SCH (09:00)
[2018-05-17 09:31] LABS: BASOPHILS # (AUTO) 0.03 x10^3/uL (0-0.1); BASOPHILS % (AUTO) 0 % (0-1); EOSINOPHILS # (AUTO) 0.17 x10^3/uL (0-0.4); EOSINOPHILS % (AUTO) 2 % (1-7); LYMPHOCYTES # (AUTO) 2.41 x10^3/uL (1-3.4); LYMPHOCYTES % (AUTO) 24 % (22-44); MD NO; MEAN CORPUSCULAR HEMOGLOBIN 33.5 pg (27.0-34.8); MEAN CORPUSCULAR VOLUME 101.5 fL (80-100); MEAN PLATELET VOLUME 7.8 fL (7.4-10.4); MONOCYTES % (AUTO) 10 % (2-9); NEUTROPHILS % (AUTO) 64 % (42-75); PLATELET COUNT 269 x10^3/uL (130-400); RED CELL DISTRIBUTION WIDTH 13.4 % (9.6-15.2)
[2018-05-17 09:42] LABS: ANION GAP 6 mmol/L (5-15); CALCIUM 8.5 mg/dL (8.5-10.1); CHLORIDE 109 mmol/L (98-107); CREATININE 1.32 mg/dL (0.55-1.02)
[2018-05-17 10:07] LABS: THYROID STIMULATING HORMONE 0.605 mIU/L (0.358-3.740)
[2018-05-17] MEDS ORDERED: REGADENOSON 0.4 MG/5 ML SYRINGE ONE (10:23)
[2018-05-17 11:50] VITALS: BP 136/67
[2018-05-17] MEDS: DIGOXIN 0.25 MG TABLET PO SCH (12:01)
[2018-05-17] MEDS: AMANTADINE 100 MG CAPSULE PO SCH ×2 (12:02→20:32)
[2018-05-17] MEDS: FUROSEMIDE 40 MG TABLET PO SCH (12:02)
[2018-05-17] MEDS: OXYcodone/APAP 10/325MG TABLET PO PRN ×2 (12:06→20:32)
[2018-05-17 12:40] VITALS: BP 147/74
[2018-05-17] MEDS ORDERED: PHARMACY MAY ADJ FOR RENAL FX MC PRN (13:00)
[2018-05-17 14:00] LABS: CULTURE INDICATED? YES; MICROSCOPIC INDICATED
[2018-05-17] MEDS ORDERED: CIPROFLOXACIN 500 MG TABLET ONE (17:08)
[2018-05-17] MEDS: CIPROFLOXACIN 250 MG TABLET PO SCH (17:48)
[2018-05-17] MEDS: RIVAROXABAN 20 MG TABLET PO SCH (17:48)
[2018-05-17 18:47] VITALS: BP 109/66
[2018-05-18 00:04] VITALS: BP 136/64
[2018-05-18 05:16] LABS: ANION GAP 6 mmol/L (5-15); CALCIUM 8.3 mg/dL (8.5-10.1); CHLORIDE 103 mmol/L (98-107)
[2018-05-18 05:19] LABS: BASOPHILS # (AUTO) 0.03 x10^3/uL (0-0.1); BASOPHILS % (AUTO) 0 % (0-1); EOSINOPHILS % (AUTO) 1 % (1-7); LYMPHOCYTES # (AUTO) 2.09 x10^3/uL (1-3.4); LYMPHOCYTES % (AUTO) 18 % (22-44); MD NO; MEAN CORPUSCULAR HEMOGLOBIN 33.7 pg (27.0-34.8); MEAN CORPUSCULAR HGB CONC 32.7 g/dL (32.4-35.8); MEAN CORPUSCULAR VOLUME 103.2 fL (80-100); MEAN PLATELET VOLUME 8.4 fL (7.4-10.4); MONOCYTES # (AUTO) 1.12 x10^3/uL (0.2-0.8); MONOCYTES % (AUTO) 9 % (2-9); NEUTROPHILS # (AUTO) 8.63 x10^3/uL (1.8-6.8); NEUTROPHILS % (AUTO) 72 % (42-75); PLATELET COUNT 285 x10^3/uL (130-400); RED BLOOD COUNT 3.88 x10^6/uL (3.82-5.3); RED CELL DISTRIBUTION WIDTH 12.9 % (9.6-15.2)
[2018-05-18 06:02] VITALS: BP 115/58
[2018-05-18] MEDS: METOPROLOL TARTRATE 25 MG TABLET PO SCH (06:02)
[2018-05-18] MEDS: PRASTERONE 25 MG HOMEMEDPO SCH (09:00)
[2018-05-18] MEDS: CIPROFLOXACIN 250 MG TABLET PO SCH (09:00)
[2018-05-18] MEDS ORDERED: CIPROFLOXACIN 500 MG TABLET ONE (09:04)
[2018-05-18] MEDS: LOSARTAN 50MG TABLET PO SCH (09:08)
[2018-05-18] MEDS: AMANTADINE 100 MG CAPSULE PO SCH (09:09)
[2018-05-18] MEDS: LEVOTHYROXINE 75 MCG TABLET PO SCH (09:09)
[2018-05-18] MEDS: FUROSEMIDE 40 MG TABLET PO SCH (09:10)
[2018-05-18] MEDS: PANTOPROZOLE 40MG TABLET PO SCH (09:10)
[2018-05-18] MEDS: DIGOXIN 0.25 MG TABLET PO SCH (09:10)
[2018-05-18] MEDS: OXYcodone/APAP 10/325MG TABLET PO PRN (09:21)
[2018-05-18] MEDS ORDERED: OXYC1TAB7 PO (09:28)
[2018-05-18] MEDS ORDERED: CIPR250T27 PO (12:01)
[2018-05-18 12:25] VITALS: BP 113/53
== END 2018-05-18 14:05 | disposition home or self-care (01) | DRG 683 ==
LOC: ED 17:42 → EDIP 18:34 → 5SO 20:23 → DCLOUNGE 05-18 13:54
PROVIDERS: ADMIT Hospitalist; ATTEND Hospitalist
DX: N17.0 Acute kidney failure with tubular necrosis (principal); I20.0 Unstable angina; I13.0 Hypertensive heart and chronic kidney disease with heart failure and stage 1 through stage 4 chronic kidney disease, or unspecified chronic kidney disease; D68.59 Other primary thrombophilia; I50.32 Chronic diastolic (congestive) heart failure; J96.10 Chronic respiratory failure, unspecified whether with hypoxia or hypercapnia; I48.2 Chronic atrial fibrillation; D72.829 Elevated white blood cell count, unspecified; D75.89 Other specified diseases of blood and blood-forming organs; E03.9 Hypothyroidism, unspecified; I25.5 Ischemic cardiomyopathy; I73.9 Peripheral vascular disease, unspecified; J44.9 Chronic obstructive pulmonary disease, unspecified; M60.9 Myositis, unspecified; N18.3 Chronic kidney disease, stage 3 (moderate); Z86.711 Personal history of pulmonary embolism; Z87.891 Personal history of nicotine dependence; Z95.0 Presence of cardiac pacemaker; Z98.1 Arthrodesis status; Z99.81 Dependence on supplemental oxygen; Z88.0 Allergy status to penicillin; Z88.8 Allergy status to other drugs, medicaments and biological substances
CPT/HCPCS: 36415; 71045; 78452; 80048; 80162; 81001; 82040; 82607; 83880; 84443; 84484; 85025; 85610; 85730; 87077; 87086; 87186; 93005; 93017; 93306; 99285; G0378; J2785; J7512; A9502; C9898

== ENCOUNTER 2018-09-30 17:34 | Inpatient (IN) | payer MEDICARE, OTHER ==
[~2018-09-30] VITALS: Ht 154.9 cm; Wt 63.3 kg
[~2018-09-30 17:34] MED LIST changes: -ASPI-621 PO; +ASPI81TA45 PO; +CIPR250T27 PO; +LOSA100T14 PO; -LOSA100T7 PO; +OXYC1TAB7 PO; -RIVA10TA PO; +RIVA10TA2 PO
[2018-09-30 18:16] LABS: RAPID INFLUENZA A Negative (Negative); RAPID INFLUENZA B Negative (Negative)
[2018-09-30] MEDS ORDERED: METOPROLOL 1 MG/ML, 5ML IVPush ONE (18:30)
[2018-09-30] MEDS ORDERED: SODIUM CHLORIDE FLUSH 10ML SYR IVF ONE (18:30)
[2018-09-30] MEDS ORDERED: METOPROLOL 1 MG/ML, 5ML ONE (18:50)
[2018-09-30 19:00] LABS: INTERNATIONAL NORMALIZED RATIO 1.05 (0.93-1.1); PROTHROMBIN TIME 11.1 Seconds (9.6-11.5)
[2018-09-30] MEDS ORDERED: METOPROLOL 1 MG/ML, 5ML IVPush PRN (19:00)
--- NOTE | 2018-09-30 19:02 | NUR ---
ASSISTED TO [facility]. VOIDED URINE SPECIMEN OBTAINED: CLEAR YELLOW. STOOL SPECIMEN OBTAINED: GLEATANOUS BROWN.
[2018-09-30 19:04] LABS: ALBUMIN 3.5 g/dL (3.4-5.0); ANION GAP 10 mmol/L (5-15); CALCIUM 8.9 mg/dL (8.5-10.1); CHLORIDE 106 mmol/L (98-107)
[2018-09-30 19:08] LABS: TROPONIN I 0.051 ng/mL (0.000-0.045)
--- NOTE | 2018-09-30 19:16 | NUR ---
PT REPORTS SHE STOPPED LASIX 6 DAYS AGO - TOOK 40MG PRODUCT ARCHITECT, DIARRHEA X 7 DAYS, NAUSEA X 3 DAYS. STATES SHE'S HAD ONLY WATER FOR PAST 2 DAYS.
[2018-09-30] MEDS ORDERED: ASPIRIN 325 MG TABLET PO ONE (19:30)
[2018-09-30 19:39] LABS: MICROSCOPIC AUTO
[2018-09-30 19:42] LABS: CULTURE INDICATED? YES
--- NOTE | 2018-09-30 19:45 | NUR ---
Multiple attempts to start IV by this RN.
--- NOTE | 2018-09-30 19:55 | NUR ---
Another RN at bedside to attempt IV start.
[2018-09-30] MEDS ORDERED: FUROSEMIDE 40 MG/4 ML IV ONE (20:00)
[2018-09-30] MEDS ORDERED: DIGOXIN 0.25 MG/ML, 2ML IVPush ONE (20:00)
[2018-09-30 20:10] LABS: MEAN CORPUSCULAR HGB CONC 32.8 g/dL (32.4-35.8); MEAN CORPUSCULAR VOLUME 100.7 fL (80-100); PLATELET COUNT 226 x10^3/uL (130-400); RED BLOOD COUNT 5.27 x10^6/uL (3.82-5.3); RED CELL DISTRIBUTION WIDTH 14.3 % (9.6-15.2)
[2018-09-30 20:11] LABS: BASOPHILS # (AUTO) 0.07 x10^3/uL (0-0.1); BASOPHILS % (AUTO) 1 % (0-1); EOSINOPHILS # (AUTO) 0.17 x10^3/uL (0-0.4); EOSINOPHILS % (AUTO) 1 % (1-7); LYMPHOCYTES % (AUTO) 8 % (22-44); MD SCAN; MONOCYTES # (AUTO) 1.19 x10^3/uL (0.2-0.8); MONOCYTES % (AUTO) 9 % (2-9); NEUTROPHILS % (AUTO) 82 % (42-75)
--- NOTE | 2018-09-30 20:17 | NUR ---
Dr. Domingo at bedside to evaluate pt for admission.
--- NOTE | 2018-09-30 20:24 | NUR ---
Telephone SBAR report given to RNClifford. Pt made aware of new room assignment.
[2018-09-30] MEDS ORDERED: FUROSEMIDE 40 MG/4 ML ONE (20:31)
[2018-09-30] MEDS ORDERED: ASPIRIN 325 MG TABLET ONE (20:31)
--- NOTE | 2018-09-30 20:40 | NUR ---
Pt medicated per OCT, EDT at bedside for transfer upstairs.
[2018-09-30 21:00] VITALS: BP 135/84
[2018-09-30] MEDS ORDERED: POLYETHYLENE GLYCOL 17 GM PACKET PO PRN (21:00)
[2018-09-30] MEDS ORDERED: LABETALOL 5MG/ML, 20ML IVPush PRN (21:00)
[2018-09-30] MEDS ORDERED: morphine SULFATE 10 MG/ML, 1ML IVPush PRN (21:00)
[2018-09-30] MEDS ORDERED: RIVAROXABAN 20 MG TABLET PO SCH (21:00)
[2018-09-30] MEDS ORDERED: ONDANSETRON ODT 4 MG PO PRN (21:00)
[2018-09-30] MEDS ORDERED: DOCUSATE 100 MG CAPSULE PO PRN (21:00)
[2018-09-30] MEDS ORDERED: PROMETHAZINE 25 MG/ML, 1ML IM PRN (21:00)
[2018-09-30] MEDS ORDERED: hydrALAzine 20 MG/ML, 1ML IVPush PRN (21:00)
[2018-09-30] MEDS ORDERED: BISACODYL 10 MG SUPP PR PRN (21:00)
[2018-09-30] MEDS ORDERED: ONDANSETRON 2MG/ML, 2ML IVPush PRN (21:00)
[2018-09-30 21:21] LABS: CLOSTRIDIUM DIFFICILE ANTIGEN POSITIVE; CLOSTRIDIUM DIFFICILE TOXIN NEGATIVE (Negative)
[2018-09-30 21:34] LABS: FREE T4 (FREE THYROXINE) 1.18 ng/dL (0.76-1.46); THYROID STIMULATING HORMONE 5.79 mIU/L (0.358-3.740)
[2018-09-30] MEDS: METOPROLOL TARTRATE 25 MG TABLET PO SCH (22:39)
[2018-09-30] MEDS: AMANTADINE 100 MG CAPSULE PO SCH (22:51)
[2018-09-30] MEDS: FUROSEMIDE 20 MG/2 ML IV SCH (22:51)
[2018-09-30 23:29] VITALS: BP 135/84
[2018-10-01 00:20] VITALS: BP_SYST 117; BP_DIAS 61; BP_DIAS 81
[2018-10-01 05:32] LABS: BASOPHILS # (AUTO) 0.01 x10^3/uL (0-0.1); BASOPHILS % (AUTO) 0 % (0-1); EOSINOPHILS # (AUTO) 0.25 x10^3/uL (0-0.4); EOSINOPHILS % (AUTO) 3 % (1-7); LYMPHOCYTES # (AUTO) 1.04 x10^3/uL (1-3.4); LYMPHOCYTES % (AUTO) 11 % (22-44); MD NO; MEAN CORPUSCULAR HEMOGLOBIN 33.1 pg (27.0-34.8); MEAN CORPUSCULAR VOLUME 100.1 fL (80-100); MEAN PLATELET VOLUME 7.7 fL (7.4-10.4); MONOCYTES # (AUTO) 1.08 x10^3/uL (0.2-0.8); MONOCYTES % (AUTO) 11 % (2-9); NEUTROPHILS # (AUTO) 7.49 x10^3/uL (1.8-6.8); NEUTROPHILS % (AUTO) 76 % (42-75); PLATELET COUNT 215 x10^3/uL (130-400); RED CELL DISTRIBUTION WIDTH 14.5 % (9.6-15.2)
[2018-10-01 05:37] LABS: ALANINE AMINOTRANSFERASE 23 U/L (12-78); ALBUMIN 3.4 g/dL (3.4-5.0); ANION GAP 10 mmol/L (5-15); CALCIUM 8.9 mg/dL (8.5-10.1); CHLORIDE 104 mmol/L (98-107); CREATININE 1.71 mg/dL (0.55-1.02)
[2018-10-01 05:40] LABS: ALKALINE PHOSPHATASE 95 U/L (45-117); BILIRUBIN,TOTAL 0.7 mg/dL (0.2-1.0); CHOL/HDL RATIO 4.9; CHOLESTEROL, TOTAL 298 mg/dL (140-239); HDL CHOL % 20 % (28-40); HDL CHOLESTEROL (DIRECT) 61 mg/dL (40-60); LDL CHOLESTEROL,CALCULATED 199 mg/dL (54-169); LDL/HDL RATIO 3.3 (0.5-3.0); TOTAL PROTEIN 7.7 g/dL (6.4-8.2); TRIGLYCERIDES 190 mg/dL (50-200); VLDL CHOLESTEROL 38 mg/dL (0-25)
[2018-10-01] MEDS: METOPROLOL TARTRATE 25 MG TABLET PO SCH (05:43)
[2018-10-01 06:34] VITALS: BP 128/78
[2018-10-01] MEDS: AMANTADINE 100 MG CAPSULE PO SCH ×2 (08:25→20:05)
[2018-10-01] MEDS: LEVOTHYROXINE 75 MCG TABLET PO SCH (08:25)
[2018-10-01] MEDS: DIGOXIN 0.25 MG TABLET PO SCH (08:25)
[2018-10-01] MEDS: PANTOPROZOLE 40MG TABLET PO SCH (08:25)
[2018-10-01] MEDS: FUROSEMIDE 20 MG/2 ML IV SCH (08:26)
[2018-10-01] MEDS ORDERED: TEMPLATE NON-FORMULARY MED. (Prasterone (Dhea) (Dhea 25) 25 MG) PO SCH (09:00)
[2018-10-01] MEDS ORDERED: LOSARTAN 50MG TABLET PO SCH (09:00)
[2018-10-01] MEDS ORDERED: VALACYCLOVIR 500MG TABLET PO SCH (09:00)
[2018-10-01] MEDS ORDERED: SODIUM CHLORIDE 0.9%, 500ML IVBOLUS ONE (12:30)
[2018-10-01 14:00] VITALS: BP 94/57
[2018-10-01 17:59] VITALS: BP 91/61
[2018-10-01] MEDS ORDERED: CARVEDILOL 3.125 MG TABLET PO SCH ×2 (18:00)
[2018-10-01] MEDS: RIVAROXABAN 15 MG TABLET PO SCH (18:02)
[2018-10-01 19:10] VITALS: BP 90/59
[2018-10-01] MEDS: ATORVASTATIN 40 MG TABLET PO SCH (20:05)
[2018-10-01] MEDS: METRONIDAZOLE PMX 500MG/100ML 100 ML IV SCH (20:11)
[2018-10-02] MEDS: METRONIDAZOLE PMX 500MG/100ML 100 ML IV SCH (00:53)
[2018-10-02] MEDS: METOPROLOL TARTRATE 25 MG TABLET PO SCH ×3 (03:26→20:05)
[2018-10-02 03:28] VITALS: BP 116/66
[2018-10-02 05:46] LABS: ANION GAP 9 mmol/L (5-15); CALCIUM 7.6 mg/dL (8.5-10.1); CHLORIDE 107 mmol/L (98-107); CREATININE 2.11 mg/dL (0.55-1.02)
[2018-10-02 05:56] LABS: BASOPHILS # (AUTO) 0.06 x10^3/uL (0-0.1); BASOPHILS % (AUTO) 1 % (0-1); EOSINOPHILS # (AUTO) 0.37 x10^3/uL (0-0.4); EOSINOPHILS % (AUTO) 3 % (1-7); LYMPHOCYTES # (AUTO) 1.16 x10^3/uL (1-3.4); LYMPHOCYTES % (AUTO) 9 % (22-44); MD NO; MEAN CORPUSCULAR HEMOGLOBIN 33.3 pg (27.0-34.8); MEAN CORPUSCULAR VOLUME 101.2 fL (80-100); MEAN PLATELET VOLUME 8.1 fL (7.4-10.4); MONOCYTES # (AUTO) 1.28 x10^3/uL (0.2-0.8); MONOCYTES % (AUTO) 10 % (2-9); NEUTROPHILS # (AUTO) 9.45 x10^3/uL (1.8-6.8); NEUTROPHILS % (AUTO) 77 % (42-75); PLATELET COUNT 201 x10^3/uL (130-400); RED CELL DISTRIBUTION WIDTH 14.4 % (9.6-15.2)
[2018-10-02 07:33] VITALS: BP 110/62
[2018-10-02] MEDS: SODIUM CHLORIDE 0.9% 1,000 ML IV SCH ×2 (08:00→21:33)
[2018-10-02] MEDS ORDERED: LOSARTAN 25MG TABLET PO SCH (09:00)
[2018-10-02] MEDS ORDERED: FUROSEMIDE 20 MG/2 ML IV SCH (09:00)
[2018-10-02] MEDS: VANCOMYCIN 50 MG/ML ORAL SUSP PO SCH ×3 (10:36→20:04)
[2018-10-02] MEDS: CEFTRIAXONE PMX 2GM/50ML 50 ML IV SCH (10:36)
[2018-10-02] MEDS: DIGOXIN 0.25 MG TABLET PO SCH (10:37)
[2018-10-02] MEDS: LEVOTHYROXINE 75 MCG TABLET PO SCH (10:37)
[2018-10-02] MEDS: PANTOPROZOLE 40MG TABLET PO SCH (10:37)
[2018-10-02] MEDS: AMANTADINE 100 MG CAPSULE PO SCH ×2 (10:37→20:04)
[2018-10-02 13:09] VITALS: BP 114/65
[2018-10-02] MEDS: RIVAROXABAN 15 MG TABLET PO SCH (17:25)
[2018-10-02 19:50] VITALS: BP 109/56
[2018-10-02] MEDS: ATORVASTATIN 40 MG TABLET PO SCH (20:04)
[2018-10-02] MEDS: OXYcodone/APAP 5/325MG TABLET PO PRN (21:33)
[2018-10-03] MEDS: VANCOMYCIN 50 MG/ML ORAL SUSP PO SCH ×4 (02:03→20:04)
[2018-10-03 02:07] VITALS: BP 114/70
[2018-10-03 08:15] VITALS: BP 131/72
[2018-10-03] MEDS: DIGOXIN 0.25 MG TABLET PO SCH (08:44)
[2018-10-03] MEDS: AMANTADINE 100 MG CAPSULE PO SCH ×2 (08:45→20:05)
[2018-10-03] MEDS: METOPROLOL TARTRATE 25 MG TABLET PO SCH ×2 (08:47→20:06)
[2018-10-03] MEDS: PANTOPROZOLE 40MG TABLET PO SCH (08:47)
[2018-10-03] MEDS: LEVOTHYROXINE 75 MCG TABLET PO SCH (08:48)
[2018-10-03] MEDS: CEFTRIAXONE PMX 2GM/50ML 50 ML IV SCH (10:47)
[2018-10-03 12:18] LABS: BASOPHILS # (AUTO) 0.05 x10^3/uL (0-0.1); BASOPHILS % (AUTO) 1 % (0-1); EOSINOPHILS # (AUTO) 0.36 x10^3/uL (0-0.4); EOSINOPHILS % (AUTO) 4 % (1-7); LYMPHOCYTES # (AUTO) 0.71 x10^3/uL (1-3.4); LYMPHOCYTES % (AUTO) 7 % (22-44); MD NO; MEAN CORPUSCULAR HEMOGLOBIN 33.3 pg (27.0-34.8); MEAN CORPUSCULAR HGB CONC 32.7 g/dL (32.4-35.8); MEAN CORPUSCULAR VOLUME 101.8 fL (80-100); MEAN PLATELET VOLUME 7.8 fL (7.4-10.4); MONOCYTES # (AUTO) 0.93 x10^3/uL (0.2-0.8); MONOCYTES % (AUTO) 10 % (2-9); NEUTROPHILS # (AUTO) 7.62 x10^3/uL (1.8-6.8); NEUTROPHILS % (AUTO) 79 % (42-75); PLATELET COUNT 196 x10^3/uL (130-400); RED BLOOD COUNT 4.12 x10^6/uL (3.82-5.3); RED CELL DISTRIBUTION WIDTH 14.4 % (9.6-15.2)
[2018-10-03 12:26] LABS: ALBUMIN 2.6 g/dL (3.4-5.0); ANION GAP 6 mmol/L (5-15); CALCIUM 7.2 mg/dL (8.5-10.1); CHLORIDE 111 mmol/L (98-107)
[2018-10-03 12:29] LABS: ALANINE AMINOTRANSFERASE 16 U/L (12-78); ALKALINE PHOSPHATASE 76 U/L (45-117); BILIRUBIN,TOTAL 0.4 mg/dL (0.2-1.0); CREATININE 1.27 mg/dL (0.55-1.02); TOTAL PROTEIN 6.2 g/dL (6.4-8.2)
[2018-10-03 13:36] VITALS: BP 149/70
[2018-10-03] MEDS: OXYcodone/APAP 5/325MG TABLET PO PRN (14:47)
[2018-10-03] MEDS: RIVAROXABAN 15 MG TABLET PO SCH (18:06)
[2018-10-03 19:41] VITALS: BP 110/67
[2018-10-03] MEDS: ATORVASTATIN 40 MG TABLET PO SCH (20:04)
[2018-10-04 01:25] VITALS: BP 129/57
[2018-10-04] MEDS: VANCOMYCIN 50 MG/ML ORAL SUSP PO SCH ×2 (02:07→09:07)
[2018-10-04] MEDS: OXYcodone/APAP 5/325MG TABLET PO PRN ×2 (02:08→08:59)
[2018-10-04 06:45] VITALS: BP 134/88
[2018-10-04] MEDS ORDERED: predniSONE 5 MG/5 ML ORAL SOL PO SCH (08:00)
[2018-10-04] MEDS: METOPROLOL TARTRATE 25 MG TABLET PO SCH (08:49)
[2018-10-04] MEDS: PANTOPROZOLE 40MG TABLET PO SCH (08:50)
[2018-10-04] MEDS: LEVOTHYROXINE 75 MCG TABLET PO SCH (08:50)
[2018-10-04] MEDS: AMANTADINE 100 MG CAPSULE PO SCH (08:50)
[2018-10-04] MEDS: DIGOXIN 0.25 MG TABLET PO SCH (08:50)
[2018-10-04 09:09] VITALS: BP 135/70
[2018-10-04 09:42] LABS: BASOPHILS # (AUTO) 0.03 x10^3/uL (0-0.1); BASOPHILS % (AUTO) 0 % (0-1); EOSINOPHILS # (AUTO) 0.44 x10^3/uL (0-0.4); EOSINOPHILS % (AUTO) 4 % (1-7); LYMPHOCYTES # (AUTO) 0.89 x10^3/uL (1-3.4); LYMPHOCYTES % (AUTO) 8 % (22-44); MD NO; MEAN CORPUSCULAR HGB CONC 32.9 g/dL (32.4-35.8); MEAN CORPUSCULAR VOLUME 100.3 fL (80-100); MEAN PLATELET VOLUME 7.8 fL (7.4-10.4); MONOCYTES # (AUTO) 0.77 x10^3/uL (0.2-0.8); MONOCYTES % (AUTO) 7 % (2-9); NEUTROPHILS # (AUTO) 8.64 x10^3/uL (1.8-6.8); NEUTROPHILS % (AUTO) 80 % (42-75); PLATELET COUNT 219 x10^3/uL (130-400); RED BLOOD COUNT 4.32 x10^6/uL (3.82-5.3); RED CELL DISTRIBUTION WIDTH 14.2 % (9.6-15.2)
[2018-10-04 09:51] LABS: ANION GAP 7 mmol/L (5-15); CALCIUM 7.6 mg/dL (8.5-10.1); CHLORIDE 109 mmol/L (98-107); CREATININE 1.13 mg/dL (0.55-1.02)
[2018-10-04] MEDS: CEFTRIAXONE PMX 2GM/50ML 50 ML IV SCH (10:50)
[2018-10-04] MEDS ORDERED: LOSA25TA2 PO (11:56)
[2018-10-04] MEDS ORDERED: RIVA15TA PO (11:56)
[2018-10-04] MEDS ORDERED: VANC1VIA3 PO (11:56)
[2018-10-04] MEDS ORDERED: CEFD300C37 PO (11:56)
[2018-10-04] MEDS ORDERED: METO25TA35 PO (11:56)
[2018-10-04] MEDS ORDERED: ATOR40TA78 PO (11:56)
[2018-10-04] MEDS ORDERED: POLY17PO5 PO (11:56)
[2018-10-04] MEDS ORDERED: FURO-93 PO (11:56)
[2018-10-04] MEDS ORDERED: LACT1CAP35 PO (11:58)
[2018-10-04 14:00] VITALS: BP 107/64
== END 2018-10-04 14:18 | DRG 308 ==
LOC: ED 19:56 → EDIP 20:00 → 5SO 21:04
PROVIDERS: ADMIT Internal Medicine; ATTEND Internal Medicine
PROC: 4B02XSZ Measurement of Cardiac Pacemaker, External Approach (ICD-10-PCS; principal; 2018-10-01)
DX: T82.110A Breakdown (mechanical) of cardiac electrode, initial encounter (principal); I50.43 Acute on chronic combined systolic (congestive) and diastolic (congestive) heart failure; A04.72 Enterocolitis due to Clostridium difficile, not specified as recurrent; I13.0 Hypertensive heart and chronic kidney disease with heart failure and stage 1 through stage 4 chronic kidney disease, or unspecified chronic kidney disease; J96.10 Chronic respiratory failure, unspecified whether with hypoxia or hypercapnia; N39.0 Urinary tract infection, site not specified; D68.69 Other thrombophilia; I48.2 Chronic atrial fibrillation; B96.20 Unspecified Escherichia coli [E. coli] as the cause of diseases classified elsewhere; E03.9 Hypothyroidism, unspecified; E78.5 Hyperlipidemia, unspecified; I25.5 Ischemic cardiomyopathy; I35.8 Other nonrheumatic aortic valve disorders; I48.0 Paroxysmal atrial fibrillation; I73.9 Peripheral vascular disease, unspecified; N18.3 Chronic kidney disease, stage 3 (moderate); J44.9 Chronic obstructive pulmonary disease, unspecified; M60.9 Myositis, unspecified; R32 Unspecified urinary incontinence; Y71.2 Prosthetic and other implants, materials and accessory cardiovascular devices associated with adverse incidents; Z79.52 Long term (current) use of systemic steroids; Z79.899 Other long term (current) drug therapy; Z85.44 Personal history of malignant neoplasm of other female genital organs; Z86.711 Personal history of pulmonary embolism; Z86.73 Personal history of transient ischemic attack (TIA), and cerebral infarction without residual deficits; Z87.891 Personal history of nicotine dependence; Z95.0 Presence of cardiac pacemaker; Z98.1 Arthrodesis status; Z79.01 Long term (current) use of anticoagulants; Z86.718 Personal history of other venous thrombosis and embolism; Z88.8 Allergy status to other drugs, medicaments and biological substances; Z88.0 Allergy status to penicillin; Z88.1 Allergy status to other antibiotic agents
CPT/HCPCS: 36415; 70450; 71045; 80048; 80053; 80061; 80162; 81001; 82040; 82962; 83036; 83735; 83880; 84100; 84439; 84443; 84484; 85025; 85610; 85730; 87077; 87086; 87186; 87324; 87400; 87493; 89055; 93005; 93306; 96374; 96375; 99291; G0378; J0696; J1940; J3370; J7512; J1160; J7030; J7040

== ENCOUNTER → 2019-01-09 | Outpatient (CLI) | payer MEDICARE, OTHER ==
[~2019-01-09] MED LIST changes: +ATOR40TA78 PO; +FURO-93 PO; +LACT1CAP35 PO; +POLY17PO5 PO; +RIVA15TA PO; +VANC1VIA3 PO
== END | disposition home or self-care (01) ==
LOC: CFH 14:35
PROVIDERS: ATTEND Internal Medicine Cardiovascular Disease
DX: I08.3 Combined rheumatic disorders of mitral, aortic and tricuspid valves (principal); I10 Essential (primary) hypertension; E78.5 Hyperlipidemia, unspecified; I42.9 Cardiomyopathy, unspecified; Z87.891 Personal history of nicotine dependence
CPT/HCPCS: 93306

== ENCOUNTER 2019-03-11 14:54 | Emergency (ER) | payer MEDICARE, OTHER ==
[~2019-03-11] VITALS: Ht 157.5 cm; Wt 65.0 kg
[2019-03-11 19:02] VITALS: BP 139/92
== END 2019-03-11 19:39 | disposition home or self-care (01) ==
LOC: ED 16:59
DX: R11.2 Nausea with vomiting, unspecified (principal); R19.7 Diarrhea, unspecified; I25.2 Old myocardial infarction; I48.91 Unspecified atrial fibrillation; I50.9 Heart failure, unspecified; J44.9 Chronic obstructive pulmonary disease, unspecified; Z86.718 Personal history of other venous thrombosis and embolism
CPT/HCPCS: 36415; 74021; 80053; 81001; 83690; 85025; 87086; 87324; 89055; 96372; 96374; 99284; J2550; J3490; J7030

== ENCOUNTER 2019-08-22 06:40 | Day surgery (SDC) | payer MEDICARE, OTHER ==
[2019-08-20 09:48] LABS: BASOPHILS # (AUTO) 0.06 x10^3/uL (0-0.1); BASOPHILS % (AUTO) 1 % (0-1); EOSINOPHILS # (AUTO) 0.07 x10^3/uL (0-0.4); EOSINOPHILS % (AUTO) 1 % (1-7); LYMPHOCYTES # (AUTO) 1.18 x10^3/uL (1-3.4); LYMPHOCYTES % (AUTO) 8 % (22-44); MD NO; MEAN CORPUSCULAR HEMOGLOBIN 31.3 pg (27.0-34.8); MEAN CORPUSCULAR HGB CONC 32.2 g/dL (32.4-35.8); MEAN CORPUSCULAR VOLUME 97.3 fL (80-100); MEAN PLATELET VOLUME 7.4 fL (7.4-10.4); MONOCYTES # (AUTO) 0.62 x10^3/uL (0.2-0.8); MONOCYTES % (AUTO) 4 % (2-9); NEUTROPHILS % (AUTO) 86 % (42-75); PLATELET COUNT 305 x10^3/uL (130-400); RED CELL DISTRIBUTION WIDTH 12.9 % (9.6-15.2)
[2019-08-20 09:55] LABS: ALANINE AMINOTRANSFERASE 18 U/L (12-78); ALBUMIN 3.8 g/dL (3.4-5.0); ANION GAP 7 mmol/L (5-15); CALCIUM 8.8 mg/dL (8.5-10.1); CHLORIDE 107 mmol/L (98-107); CREATININE 1.16 mg/dL (0.55-1.02)
[2019-08-20 09:58] LABS: ALKALINE PHOSPHATASE 70 U/L (45-117); BILIRUBIN,TOTAL 0.5 mg/dL (0.2-1.0); TOTAL PROTEIN 7.4 g/dL (6.4-8.2)
[2019-08-20 10:01] LABS: PROTHROMBIN TIME 10.5 Seconds (9.6-11.5)
[~2019-08-22] VITALS: Ht 154.9 cm; Wt 60.5 kg
[~2019-08-22 06:40] MED LIST changes: +ATOR10TA9 PO; +DIGO125T PO; -GUAI200T3 PO; +GUAI200T37 PO; +LOSA50TA14 PO; -PRED1TAB PO; +PRED1TAB19 PO; +Phenergan PO; +[UNRECOGNIZED DRUG - CODE] IV
[2019-08-22 07:43] VITALS: BP 105/63
[2019-08-22] MEDS ORDERED: ALBUTEROL/IPRATROPIUM 2.5MG/0.5MG, 3 ML NPPB PRN (08:30)
[2019-08-22] MEDS ORDERED: PROPOFOL 10 MG/ML, 20ML ONE ×2 (08:41)
== END 2019-08-22 10:40 | disposition home or self-care (01) ==
LOC: OUT 06:40
PROVIDERS: ATTEND Internal Medicine Gastroenterology
DX: Z12.11 Encounter for screening for malignant neoplasm of colon (principal); K57.30 Diverticulosis of large intestine without perforation or abscess without bleeding; K64.8 Other hemorrhoids; K63.89 Other specified diseases of intestine; K21.9 Gastro-esophageal reflux disease without esophagitis; E78.5 Hyperlipidemia, unspecified; I13.0 Hypertensive heart and chronic kidney disease with heart failure and stage 1 through stage 4 chronic kidney disease, or unspecified chronic kidney disease; N18.9 Chronic kidney disease, unspecified; I50.9 Heart failure, unspecified; J44.9 Chronic obstructive pulmonary disease, unspecified; E03.9 Hypothyroidism, unspecified; I48.91 Unspecified atrial fibrillation; Z79.01 Long term (current) use of anticoagulants; Z79.899 Other long term (current) drug therapy; Z95.0 Presence of cardiac pacemaker
CPT/HCPCS: 36415; 45380; 80053; 85025; 85610; 85730; 88305; 93005; J2704

== ENCOUNTER 2019-08-30 10:34 | Emergency (ER) | payer MEDICARE, OTHER ==
[~2019-08-30] VITALS: Ht 154.9 cm; Wt 64.0 kg
[~2019-08-30 10:34] MED LIST changes: -[UNRECOGNIZED DRUG - CODE] IV; +[UNRECOGNIZED DRUG - CODE] SQ
[2019-08-30] MEDS ORDERED: SODIUM CHLORIDE FLUSH 10ML SYR IVF ONE (11:00)
--- NOTE | 2019-08-30 11:00 | NUR ---
PT SENT [facility], GRADUAL RIGHT SIDED CP FOR FOUR DAYS, WORSE WITH PALPATION AND C/O NAUSEA. PT HAS HX OF PE,DVT, A-FIB, ON XARELTO THAT WAS STOPPED FOR ONE WEEK FOR COLONOSCOPY. PT ON MONITOR. CTA CHEST TO BE DONE.
[2019-08-30 11:27] LABS: MEAN CORPUSCULAR HEMOGLOBIN 30.7 pg (27.0-34.8); MEAN CORPUSCULAR HGB CONC 31.8 g/dL (32.4-35.8); MEAN CORPUSCULAR VOLUME 96.3 fL (80-100); MEAN PLATELET VOLUME 7.6 fL (7.4-10.4); PLATELET COUNT 346 x10^3/uL (130-400); RED BLOOD COUNT 4.15 x10^6/uL (3.82-5.3)
[2019-08-30 11:31] LABS: INTERNATIONAL NORMALIZED RATIO 1.11 (0.93-1.1); PROTHROMBIN TIME 11.8 Seconds (9.6-11.5)
[2019-08-30 11:40] LABS: ALANINE AMINOTRANSFERASE 13 U/L (12-78); ALBUMIN 3.4 g/dL (3.4-5.0); ANION GAP 9 mmol/L (5-15); CALCIUM 8.2 mg/dL (8.5-10.1); CHLORIDE 109 mmol/L (98-107); CREATININE 1.02 mg/dL (0.55-1.02)
[2019-08-30 11:44] LABS: ALKALINE PHOSPHATASE 67 U/L (45-117); BILIRUBIN,TOTAL 0.4 mg/dL (0.2-1.0); TROPONIN I < 0.015 ng/mL (0.000-0.045)
[2019-08-30 11:48] LABS: BASOPHILS # (AUTO) 0.07 x10^3/uL (0-0.1); BASOPHILS % (AUTO) 0 % (0-1); EOSINOPHILS # (AUTO) 0.13 x10^3/uL (0-0.4); EOSINOPHILS % (AUTO) 1 % (1-7); LYMPHOCYTES # (AUTO) 1.46 x10^3/uL (1-3.4); LYMPHOCYTES % (AUTO) 9 % (22-44); MD SCAN; MONOCYTES # (AUTO) 0.52 x10^3/uL (0.2-0.8); MONOCYTES % (AUTO) 3 % (2-9); NEUTROPHILS # (AUTO) 14.63 x10^3/uL (1.8-6.8); NEUTROPHILS % (AUTO) 87 % (42-75)
[2019-08-30] MEDS ORDERED: OXYC-302 PO (12:29)
[2019-08-30] MEDS ORDERED: OXYcodone/APAP 5/325MG TABLET ONE (12:37)
--- NOTE | 2019-08-30 12:42 | NUR ---
PT TO CT. PT MEDICATED FOR PAIN PER MD ORDER.
[2019-08-30] MEDS ORDERED: OXYcodone/APAP 5/325MG TABLET PO ONE (13:00)
[2019-08-30] MEDS ORDERED: OMNIPAQUE 350 MG/ML, 100ML BOTTLE ONE (13:03)
--- NOTE | 2019-08-30 13:20 | NUR ---
DR. CHOW AT BEDSIDE FOR RECHECK. CTA NEGATIVE. OK FOR PT TO BE DC'D HOME.
[2019-08-30 13:32] VITALS: BP 180/100
== END 2019-08-30 13:34 | disposition home or self-care (01) ==
LOC: ED 13:07
DX: M94.0 Chondrocostal junction syndrome [Tietze] (principal); R07.89 Other chest pain; E03.9 Hypothyroidism, unspecified; J44.9 Chronic obstructive pulmonary disease, unspecified; I48.91 Unspecified atrial fibrillation; I25.2 Old myocardial infarction; I11.0 Hypertensive heart disease with heart failure; I50.9 Heart failure, unspecified; Z86.718 Personal history of other venous thrombosis and embolism
CPT/HCPCS: 36415; 71275; 80053; 83880; 84484; 85025; 85610; 93005; 99284; Q9967

== ENCOUNTER 2021-03-06 13:14 | Inpatient (IN) | payer MEDICARE, OTHER ==
[~2021-03-06] VITALS: Ht 154.9 cm; Wt 64.7 kg
[~2021-03-06 13:14] MED LIST changes: -DIGO125T PO; +DIGO125T85 PO; -DIGO250T PO; +DIGO250T3 PO; +MONT10TA17 PO; -MONT10TA9 PO; -OXYC-307 PO; +OXYC-380 PO; +OXYC1TAB14 PO; +SULF-23 PO; -SULF1TAB24 PO; -VALA1000 PO; +VALA10007 PO; -VANC1VIA3 PO; +VANC1VIA36 PO
--- NOTE | 2021-03-06 13:50 | NUR ---
PT IN GOWN IN [facility]. PT ATTACHED TO VS AND CARDIAC MONITORS. VSS AT THIS TIME. PT EDUCATED ON ER PROCESS AND POC AND VERBALIZES UNDERSTANDING. CALL LIGHT IS WITHIN REACH. AWAITING ERP AT THIS TIME.
[2021-03-06] MEDS ORDERED: SODIUM CHLORIDE FLUSH 10ML SYR IVF ONE (14:00)
[2021-03-06] MEDS ORDERED: ALBUTEROL/IPRATROPIUM 2.5MG/0.5MG, 3 ML NPPB ONE (14:00)
[2021-03-06] MEDS ORDERED: ALBUTEROL/IPRATROPIUM 2.5MG/0.5MG, 3 ML ONE ×2 (14:09→21:33)
[2021-03-06 14:32] LABS: BASOPHILS % (AUTO) 0 % (0-1); EOSINOPHILS % (AUTO) 0 % (1-7); LYMPHOCYTES % (AUTO) 8 % (22-44); MEAN CORPUSCULAR HEMOGLOBIN 31.3 pg (27.0-34.8); MEAN CORPUSCULAR HGB CONC 32.8 g/dL (32.4-35.8); MONOCYTES % (AUTO) 5 % (2-9); NEUTROPHILS % (AUTO) 86 % (42-75); PLATELET COUNT 264 x10^3/uL (130-400); RED BLOOD COUNT 4.25 x10^6/uL (3.82-5.3); RED CELL DISTRIBUTION WIDTH 13.7 % (9.6-15.2)
[2021-03-06 14:34] LABS: ALBUMIN 3.4 g/dL (3.4-5.0); ANION GAP 4 mmol/L (5-15); CALCIUM 8.5 mg/dL (8.5-10.1); CHLORIDE 106 mmol/L (98-107); CREATININE 0.96 mg/dL (0.55-1.02)
[2021-03-06 14:38] LABS: TROPONIN I 0.026 ng/mL (0.000-0.045)
[2021-03-06] MEDS ORDERED: FUROSEMIDE 40 MG/4 ML IVPush ONE (15:00)
[2021-03-06] MEDS ORDERED: FUROSEMIDE 40 MG/4 ML ONE (15:04)
--- NOTE | 2021-03-06 15:14 | NUR ---
PT MEDICATED PER MAR AT THIS TIME.
[2021-03-06] MEDS ORDERED: SODIUM CHLORIDE FLUSH 10ML SYR IVF PRN (16:00)
--- NOTE | 2021-03-06 16:14 | NUR ---
REPORT OF PT TO PRUDENCE HOFF. ALL QUESTIONS ANSWERED. TECH PAGED FOR TRANSPORT OF PT FROM ED TO FLOOR.
[2021-03-06 16:57] VITALS: BP 166/92
[2021-03-06 17:02] VITALS: BP 166/92
[2021-03-06] MEDS ORDERED: AMIT10TA PO (17:22)
[2021-03-06] MEDS ORDERED: ONDANSETRON 2MG/ML, 2ML IVPush PRN (19:30)
[2021-03-06] MEDS ORDERED: BISACODYL 10 MG SUPP PR PRN (19:30)
[2021-03-06] MEDS ORDERED: POLYETHYLENE GLYCOL 17 GM PACKET PO PRN (19:30)
[2021-03-06] MEDS ORDERED: ACETAMINOPHEN 325 MG TABLET PO PRN (19:30)
[2021-03-06] MEDS ORDERED: DOCUSATE 100 MG CAPSULE PO PRN (19:30)
[2021-03-06 20:05] VITALS: BP 148/97
[2021-03-06] MEDS: AMITRIPTYLINE 10 MG TABLET PO SCH (20:17)
[2021-03-06] MEDS: ATORVASTATIN 10 MG TABLET PO SCH (20:17)
[2021-03-06] MEDS: OXYcodone/APAP 5/325MG TABLET PO SCH (20:17)
[2021-03-06 20:30] LABS: TROPONIN I 0.022 ng/mL (0.000-0.045)
[2021-03-06] MEDS ORDERED: RIVAROXABAN 20 MG TABLET ONE (20:39)
[2021-03-06] MEDS: METOPROLOL TARTRATE 25 MG TAB PO SCH (20:41)
[2021-03-06] MEDS: RIVAROXABAN 20 MG TABLET PO SCH (20:41)
[2021-03-06] MEDS ORDERED: METOPROLOL TARTRATE 25 MG TAB PO SCH (21:00)
[2021-03-06] MEDS: ALBUTEROL/IPRATROPIUM 2.5MG/0.5MG, 3 ML NPPB SCH (21:40)
[2021-03-06] MEDS: BUDESONIDE 0.5 MG/2 ML INHA INH SCH (21:40)
[2021-03-07 01:07] LABS: BASOPHILS % (AUTO) 1 % (0-1); EOSINOPHILS % (AUTO) 1 % (1-7); LYMPHOCYTES % (AUTO) 13 % (22-44); MEAN CORPUSCULAR HEMOGLOBIN 31.8 pg (27.0-34.8); MEAN CORPUSCULAR HGB CONC 33.2 g/dL (32.4-35.8); MEAN PLATELET VOLUME 7.8 fL (7.4-10.4); MONOCYTES % (AUTO) 8 % (2-9); NEUTROPHILS % (AUTO) 78 % (42-75); PLATELET COUNT 235 x10^3/uL (130-400); RED BLOOD COUNT 4.17 x10^6/uL (3.82-5.3); RED CELL DISTRIBUTION WIDTH 13.7 % (9.6-15.2)
[2021-03-07 01:21] LABS: ALANINE AMINOTRANSFERASE 28 U/L (12-78); ALBUMIN 3.3 g/dL (3.4-5.0); ANION GAP 6 mmol/L (5-15); CALCIUM 8.5 mg/dL (8.5-10.1); CHLORIDE 101 mmol/L (98-107)
[2021-03-07 01:27] LABS: TROPONIN I 0.029 ng/mL (0.000-0.045)
[2021-03-07 01:29] LABS: ALKALINE PHOSPHATASE 63 U/L (45-117); BILIRUBIN,TOTAL 0.7 mg/dL (0.2-1.0); CREATININE 1.18 mg/dL (0.55-1.02); TOTAL PROTEIN 6.7 g/dL (6.4-8.2)
[2021-03-07 02:08] VITALS: BP 134/73
[2021-03-07 07:01] VITALS: BP 143/85
[2021-03-07] MEDS: BUDESONIDE 0.5 MG/2 ML INHA INH SCH ×2 (07:05→20:20)
[2021-03-07] MEDS: ALBUTEROL/IPRATROPIUM 2.5MG/0.5MG, 3 ML NPPB SCH ×4 (07:05→20:20)
[2021-03-07] MEDS: INSULIN LISPRO 100 UNITS/ML, PEN SQ-INSULIN SCH ×4 (08:00→20:13)
[2021-03-07] MEDS: DIGOXIN 0.125 MG TABLET PO SCH (08:29)
[2021-03-07] MEDS: METOPROLOL TARTRATE 25 MG TAB PO SCH ×2 (08:29→20:14)
[2021-03-07] MEDS: LEVOTHYROXINE 75 MCG TABLET PO SCH (08:30)
[2021-03-07] MEDS: LOSARTAN 50MG TABLET PO SCH (08:31)
[2021-03-07] MEDS: PANTOPRAZOLE 40MG TABLET PO SCH (08:31)
[2021-03-07] MEDS: OXYcodone/APAP 5/325MG TABLET PO SCH ×3 (08:31→22:36)
[2021-03-07] MEDS ORDERED: RIVAROXABAN 20 MG TABLET PO SCH (09:00)
[2021-03-07] MEDS ORDERED: BUME1TAB21 PO (12:50)
[2021-03-07] MEDS ORDERED: FUROSEMIDE 20 MG/2 ML IV ONE (13:00)
[2021-03-07 14:12] VITALS: BP 118/71
[2021-03-07] MEDS ORDERED: POTASSIUM CHLORIDE 20 MEQ TAB.ER.PRT PO ONE (15:30)
[2021-03-07 20:05] VITALS: BP 121/67
[2021-03-07] MEDS: RIVAROXABAN 20 MG TABLET PO SCH (20:14)
[2021-03-07] MEDS: AMITRIPTYLINE 10 MG TABLET PO SCH (20:14)
[2021-03-07] MEDS: ATORVASTATIN 10 MG TABLET PO SCH (20:14)
[2021-03-08 00:57] VITALS: BP 130/84
[2021-03-08 05:08] LABS: BASOPHILS % (AUTO) 1 % (0-1); EOSINOPHILS % (AUTO) 1 % (1-7); LYMPHOCYTES % (AUTO) 19 % (22-44); MEAN CORPUSCULAR HEMOGLOBIN 31.4 pg (27.0-34.8); MEAN CORPUSCULAR HGB CONC 32.6 g/dL (32.4-35.8); MEAN PLATELET VOLUME 7.6 fL (7.4-10.4); MONOCYTES % (AUTO) 14 % (2-9); NEUTROPHILS % (AUTO) 66 % (42-75); PLATELET COUNT 256 x10^3/uL (130-400); RED BLOOD COUNT 4.13 x10^6/uL (3.82-5.3); RED CELL DISTRIBUTION WIDTH 13.8 % (9.6-15.2)
[2021-03-08 05:21] LABS: ANION GAP 3 mmol/L (5-15); CALCIUM 8.6 mg/dL (8.5-10.1); CHLORIDE 101 mmol/L (98-107)
[2021-03-08] MEDS: INSULIN LISPRO 100 UNITS/ML, PEN SQ-INSULIN SCH ×2 (07:00→11:00)
[2021-03-08] MEDS: ALBUTEROL/IPRATROPIUM 2.5MG/0.5MG, 3 ML NPPB SCH (07:00)
[2021-03-08 07:31] VITALS: BP 123/68
[2021-03-08 08:36] LABS: MICROSCOPIC AUTO
[2021-03-08] MEDS: LEVOTHYROXINE 75 MCG TABLET PO SCH (08:58)
[2021-03-08] MEDS: DIGOXIN 0.125 MG TABLET PO SCH (08:58)
[2021-03-08] MEDS: OXYcodone/APAP 5/325MG TABLET PO SCH (08:59)
[2021-03-08] MEDS ORDERED: BUMETANIDE 1 MG TABLET PO SCH (09:00)
[2021-03-08] MEDS: METOPROLOL TARTRATE 25 MG TAB PO SCH (09:00)
[2021-03-08] MEDS: LOSARTAN 50MG TABLET PO SCH (09:01)
[2021-03-08] MEDS: PANTOPRAZOLE 40MG TABLET PO SCH (09:02)
[2021-03-08] MEDS ORDERED: POTASSIUM CHLORIDE 20 MEQ TAB.ER.PRT PO ONE (09:30)
[2021-03-08] MEDS ORDERED: CEFTRIAXONE 1,000 MG in DEXTROSE 5% 50 ML IVPB SCH (09:30)
[2021-03-08] MEDS ORDERED: FUROSEMIDE 40 MG/4 ML IV ONE (09:30)
[2021-03-08 12:58] VITALS: BP 110/69
== END 2021-03-08 13:57 | disposition home or self-care (01) | DRG 291 ==
LOC: ED 14:42 → EDIP 15:31 → 5SO 16:51 → DCLOUNGE 03-08 13:50
PROVIDERS: ADMIT Hospitalist; ATTEND Internal Medicine
DX: I50.43 Acute on chronic combined systolic (congestive) and diastolic (congestive) heart failure (principal); J96.21 Acute and chronic respiratory failure with hypoxia; I48.20 Chronic atrial fibrillation, unspecified; I42.9 Cardiomyopathy, unspecified; D81.89 Other combined immunodeficiencies; Z66 Do not resuscitate; M54.5 Low back pain; I73.9 Peripheral vascular disease, unspecified; J44.9 Chronic obstructive pulmonary disease, unspecified; G89.29 Other chronic pain; Z79.891 Long term (current) use of opiate analgesic; Z95.0 Presence of cardiac pacemaker; Z86.718 Personal history of other venous thrombosis and embolism; Z79.01 Long term (current) use of anticoagulants; Z74.01 Bed confinement status; Z86.711 Personal history of pulmonary embolism; I25.2 Old myocardial infarction; Z98.1 Arthrodesis status; Z87.891 Personal history of nicotine dependence; Z79.899 Other long term (current) drug therapy
CPT/HCPCS: 36415; 71045; 80048; 80053; 80162; 81001; 82040; 82962; 83036; 83735; 83880; 84100; 84145; 84443; 84484; 85025; 87077; 87086; 93005; 94640; 96374; G0378; J0696; J1940; J7512; J7626; J1815